=== PATIENT | male | born 1965 | race Caucasian/White ===

== ENCOUNTER 2018-06-03 22:14 | Emergency (ER) | payer OTHER ==
[2018-06-03] MEDS ORDERED: ASPIRIN EC 81 MG TAB PO ONE (23:16)
[2018-06-03 23:37] LABS: Absolute Lymphocytes (CBC) 2.3 K/uL (0.7-4.9); Absolute Monocytes 0.5 K/uL (0.1-1.3); Absolute Neutrophil 2.5 K/uL (1.8-8.0); Basophils % 0.9 % (0-1.3); Hematocrit 40.2 % (39.6-49.0); Lymphocytes % 41.3 % (15.3-44.8); MCH 32.8 pg (27.0-35.0); MCV 94.3 fL (80-100); MPV 9.3 fL (7.6-11.3); Monocytes % 9.7 % (3.3-12.3); RBC Red Blood Cell Count 4.26 M/uL (4.33-5.43)
[2018-06-03 23:42] LABS: Protime INR 1.05
[2018-06-03 23:51] LABS: ALT/SGPT 24 U/L (12-78); AST/SGOT 18 U/L (15-37); Alkaline Phosphatase 48 U/L (45-117); BUN Blood Urea Nitrogen 20 mg/dL (7-18); Bicarbonate 30 mmol/L (21-32); Bilirubin Direct 0.1 mg/dL (0-0.2); Bilirubin Total 0.4 mg/dL (0.2-1.0); CKMB Creatine Kinase MB 2.3 ng/mL (0.3-3.6); Creatine Phosphokinase 63 U/L (39-308); Glucose Level 105 mg/dL (74-106); Magnesium 2.2 mg/dL (1.8-2.4); NT PRO-BNP 34 pg/mL (<125); Potassium 3.7 mmol/L (3.5-5.1); Protein, Total 7.1 g/dL (6.4-8.2); Sodium Level 143 mmol/L (136-145); Troponin (Emerg Dept Use Only) < 0.02 ng/mL (0.0-0.045)
[2018-06-04] LABS: Thyroid Stimulating Hormone 6.23 uIU/mL (0.360-3.740)
--- NOTE | 2018-06-04 01:39 | EDPHYS ---
Physician Documentation [facility] Name: Isaias Palacios Age: 53 yrs Sex: Male : 1965 Arrival Date: 06/03/2018 Time: 22:14 Bed 26 Private MD: Jayant Cooper B ED Physician Luis Antonio Cordero HPI: 06/03 23:08 This 53 yrs old Male presents to ER via Ambulatory with complaints of High pkl Blood Pressure. 23:08 The patient or guardian reports chest pain that is located primarily in the substernal pkl area. Onset: just prior to arrival. The pain radiates to the left arm. Associated signs and symptoms: The patient has no apparent associated signs or symptoms. The chest pain is described as dull. The patient has experienced similar episodes in the past, several times, Over the last 3 weeks. Historical: - Allergies: 23:01 No Known Allergies; bb - Home Meds: 23:01 levothyroxine oral [Active]; nasal spray [Active]; bb - PMHx: 23:01 Hypothyroidism; bb - PSHx: 23:01 varicose veins; Knee surgery; bb - Immunization history:: Adult Immunizations up to date. - Social history:: Smoking status: Patient/guardian denies using tobacco, Patient/guardian denies using alcohol, street drugs. - Ebola Screening: : No symptoms or risks identified at this time. ROS: 23:08 Eyes: Negative for injury, pain, redness, and discharge, ENT: Negative for injury, pkl pain, and discharge, Neck: Negative for injury, pain, and swelling. 23:08 Cardiovascular: Positive for chest pain. 23:08 Respiratory: Negative for cough, shortness of breath. 23:08 Abdomen/GI: Negative for abdominal pain, nausea, vomiting, and diarrhea. 23:08 Back: Negative for acute changes. 23:08 : Negative for urinary symptoms. 23:08 MS/extremity: Negative for acute changes. 23:08 Skin: Negative for rash. 23:08 Neuro: Negative for altered mental status. Exam: 23:08 Head/Face: Normocephalic, atraumatic. Eyes: Pupils equal round and reactive to light, pkl extra-ocular motions intact. Lids and lashes normal. Conjunctiva and sclera are non-icteric and not injected. Cornea within normal limits. Periorbital areas with no swelling, redness, or edema. ENT: Nares patent. No nasal discharge, no septal abnormalities noted. Tympanic membranes are normal and external auditory canals are clear. Oropharynx with no redness, swelling, or masses, exudates, or evidence of obstruction, uvula midline. Mucous membranes moist. Neck: Trachea midline, no thyromegaly or masses palpated, and no cervical lymphadenopathy. Supple, full range of motion without nuchal rigidity, or vertebral point tenderness. No Meningismus. Chest/axilla: Normal chest wall appearance and motion. Nontender with no deformity. No lesions are appreciated. Cardiovascular: Regular rate and rhythm with a normal S1 and S2. No gallops, murmurs, or rubs. Normal PMI, no JVD. No pulse deficits. Respiratory: Lungs have equal breath sounds bilaterally, clear to auscultation and percussion. No rales, rhonchi or wheezes noted. No increased work of breathing, no retractions or nasal flaring. Abdomen/GI: Soft, non-tender, with normal bowel sounds. No distension or tympany. No guarding or rebound. No evidence of tenderness throughout. Back: No spinal tenderness. No costovertebral tenderness. Full range of motion. Skin: Warm, dry with normal turgor. Normal color with no rashes, no lesions, and no evidence of cellulitis. MS/ Extremity: Pulses equal, no cyanosis. Neurovascular intact. Full, normal range of motion. Neuro: Awake and alert, GCS 15, oriented to person, place, time, and situation. Cranial nerves II-XII grossly intact. Motor strength 5/5 in all extremities. Sensory grossly intact. Cerebellar exam normal. Normal gait. Vital Signs: 22:30 BP 126 / 87; Pulse 54; Resp 16 S; Temp 98.2(O); Pulse Ox 97% on R/A; Weight 77.11 kg bb (R); Height 6 ft. 2 in. (187.96 cm) (R); Pain 4/10; 06/04 00:40 BP 120 / 68; Pulse 53; Resp 18; Pulse Ox 97% ; tl3 01:46 BP 121 / 60; Pulse 50; Resp 18; Pulse Ox 100% on R/A; Pain 0/10; mg2 06/03 22:30 Body Mass Index 21.83 (77.11 kg, 187.96 cm) bb MDM: 06/03 23:01 Patient medically screened. rn 23:07 Patient medically screened. rn 23:07 Patient medically screened. rn 06/04 01:34 Data reviewed: vital signs, nurses notes, lab test result(s), EKG, radiologic studies, pkl plain films. ED course: Patient feeling better. Asymptomatic. Patient want to go home now. Does not want repeat Troponin done. Will follow up with Dr. Garza next week. Advised to return if necessary. 01:37 Patient medically screened. pkl 06/03 23:05 Order name: Basic Metabolic Panel; Complete Time: : pkl 06/03 23:05 Order name: CBC with Diff; Complete Time: : pkl 06/03 23:05 Order name: Ckmb; Complete Time: : pkl 06/03 23:05 Order name: CPK; Complete Time: : pkl 06/03 23:05 Order name: LFT's; Complete Time: : pkl 06/03 23:05 Order name: Magnesium; Complete Time: : pkl 06/03 23:05 Order name: NT PRO-BNP; Complete Time: : pkl 06/03 23:05 Order name: PT-INR; Complete Time: pkl 06/03 23:05 Order name: Ptt, Activated; Complete Time: pkl 06/03 23:05 Order name: Troponin (emerg Dept Use Only); Complete Time: : pkl 06/03 23:05 Order name: D-Dimer; Complete Time: : pkl 06/03 23:11 Order name: TSH; Complete Time: : pkl 06/04 00:03 Order name: T4 Free; Complete Time: : EDMS 06/03 23:05 Order name: XRAY Chest (1 view) pkl 06/03 23:05 Order name: EKG; Complete Time: 23: pkl 06/03 23:05 Order name: Cardiac monitoring; Complete Time: : pkl 06/03 23:05 Order name: EKG - Nurse/Tech; Complete Time: 23: pkl 06/03 23:05 Order name: IV Saline Lock; Complete Time: : pkl 06/03 23:05 Order name: Labs collected and sent; Complete Time: 23: pkl 06/03 23:05 Order name: O2 Per Protocol; Complete Time: 23: pkl 06/03 23:05 Order name: O2 Sat Monitoring; Complete Time: 23: pkl 06/04 01:24 Order name: EKG; Complete Time: 01:24 mg2 Administered Medications: 06/03 23:14 Drug: Aspirin 162 mg Route: PO; mg2 06/04 01:35 Follow up: Response: No adverse reaction; Marked relief of symptoms mg2 Disposition: 06/04/18 01:37 Discharged to Home. Impression: Chest pain. - Condition is Stable. - Medication Reconciliation Form, Thank You Letter, Antibiotic Education, Prescription Opioid Use form. - Follow up: Rodriguez Garza MD; When: 5 - 6 days; Reason: Re-evaluation by your physician. - Problem is new. - Symptoms have improved. Signatures: Dispatcher [employer] EDOH Luis Antonio Cordero MD MD pkl Ballard, Brenda, RN RN Reginaldo Martinez MD MD rn Gardose, Michele, RN RN mg2 Corrections: (The following items were deleted from the chart) 01:35 01:24 TROPONIN (EMERG DEPT USE ONLY)+C.LAB.BRZ ordered. [facility] EDOH 01:47 01:37 06/04/2018 01:37 Discharged to Home. Impression: Chest pain. Condition is Stable. mg2 Forms are Medication Reconciliation Form, Thank You Letter, Antibiotic Education, Prescription Opioid Use. Follow up: Rodriguez Garza; When: 5 - 6 days; Reason: Re-evaluation by your physician. Problem is new. Symptoms have improved. pkl
--- NOTE | 2018-06-04 01:39 | ER ---
Nurse's Notes [facility] Name: Isaias Palacios Age: 53 yrs Sex: Male : 1965 Arrival Date: 06/03/2018 Time: 22:14 Bed 26 Private MD: Jayant Cooper B Diagnosis: Chest pain Presentation: 06/03 22:35 Presenting complaint: Patient states: he started feeling his heart race, felt dizzy bb with chest pain radiating down left arm, took his blood pressure several times and it was elevated for him 130s/80s. Pt states his pocxgb-ie-lov just a few hours ago. Pt does have an appointment with Dr Garza next week. Has been having similar symptoms intermittently over the last 3 weeks. Transition of care: patient was not received from another setting of care. Onset of symptoms was June 03, 2018. Risk Assessment: Do you want to hurt yourself or someone else? Patient reports no desire to harm self or others. Initial Sepsis Screen: Does the patient meet any 2 criteria? No. Patient's initial sepsis screen is negative. Does the patient have a suspected source of infection? No. Patient's initial sepsis screen is negative. Care prior to arrival: None. 22:35 Method Of Arrival: Ambulatory bb 22:35 Acuity: RAYMOND 3 bb Historical: - Allergies: 23:01 No Known Allergies; bb - Home Meds: 23:01 levothyroxine oral [Active]; nasal spray [Active]; bb - PMHx: 23:01 Hypothyroidism; bb - PSHx: 23:01 varicose veins; Knee surgery; bb - Immunization history:: Adult Immunizations up to date. - Social history:: Smoking status: Patient/guardian denies using tobacco, Patient/guardian denies using alcohol, street drugs. - Ebola Screening: : No symptoms or risks identified at this time. Screenin:16 Abuse screen: Denies threats or abuse. Denies injuries from another. Nutritional mg2 screening: No deficits noted. Tuberculosis screening: No symptoms or risk factors identified. Fall Risk IV access (20 points). Assessment: 23:16 General: Appears in no apparent distress. comfortable, Behavior is calm, cooperative. mg2 Pain: Denies pain. Neuro: Level of Consciousness is awake, alert, obeys commands, Oriented to person, place, time, situation. Cardiovascular: Capillary refill < 3 seconds Patient's skin is warm and dry. Respiratory: Airway is patent Respiratory effort is even, unlabored, Respiratory pattern is regular, symmetrical. GI: No signs and/or symptoms were reported involving the gastrointestinal system. : No signs and/or symptoms were reported regarding the genitourinary system. EENT: No signs and/or symptoms were reported regarding the EENT system. Derm: Skin is intact, Skin is pink, warm \T\ dry. normal. Musculoskeletal: No signs and/or symptoms reported regarding the musculoskeletal system. 06/04 00:40 Reassessment: No changes from previously documented assessment. Patient and/or family tl3 updated on plan of care and expected duration. Pain level reassessed. Patient is alert, oriented x 3, equal unlabored respirations, skin warm/dry/pink. 01:47 Reassessment: Patient appears in no apparent distress at this time. Patient and/or mg2 family updated on plan of care and expected duration. Pain level reassessed. Patient is alert, oriented x 3, equal unlabored respirations, skin warm/dry/pink. Vital Signs: 06/03 22:30 BP 126 / 87; Pulse 54; Resp 16 S; Temp 98.2(O); Pulse Ox 97% on R/A; Weight 77.11 kg bb (R); Height 6 ft. 2 in. (187.96 cm) (R); Pain 4/10; 06/04 00:40 BP 120 / 68; Pulse 53; Resp 18; Pulse Ox 97% ; tl3 01:46 BP 121 / 60; Pulse 50; Resp 18; Pulse Ox 100% on R/A; Pain 0/10; mg2 06/03 22:30 Body Mass Index 21.83 (77.11 kg, 187.96 cm) bb ED Course: 06/03 22:14 Patient arrived in ED. ds1 22:15 Jayant Cooper MD is Private Physician. ds1 22:30 Arm band placed on Patient placed in an exam room, on a stretcher, on color television console monitor, bb on pulse oximetry. EKG completed in triage. Results shown to MD. 22:56 Triage completed. bb 23:00 Reginaldo Hastings MD is Attending Physician. rn 23:08 Attending Physician role handed off by Reginaldo Hastings MD pkl 23:08 Luis Antonio Cordero MD is Attending Physician. pkl 23:09 Rey Silva, RN is Primary Nurse. mg2 23:17 No provider procedures requiring assistance completed. Inserted saline lock: 20 gauge mg2 in left antecubital area, using aseptic technique. Blood collected. 23:18 Patient has correct armband on for positive identification. environmental monitoring technician on. Pulse mg2 ox on. NIBP on. 23:52 XRAY Chest (1 view) In Process Unspecified. EDMS 06/04 00:20 X-ray completed. Portable x-ray completed in exam room. Patient tolerated procedure kw well. 01:37 Rodriguez Garza MD is Referral Physician. pkl 01:46 IV discontinued, intact, bleeding controlled, No redness/swelling at site. Pressure mg2 dressing applied. Administered Medications: 06/03 23:14 Drug: Aspirin 162 mg Route: PO; mg2 06/04 01:35 Follow up: Response: No adverse reaction; Marked relief of symptoms mg2 Outcome: 01:37 Discharge ordered by MD. pkl 01:46 Discharged to home ambulatory. mg2 01:46 Condition: stable 01:46 Discharge instructions given to patient, Instructed on discharge instructions, follow up and referral plans. Demonstrated understanding of instructions, follow-up care. 01:47 Patient left the ED. mg2 Signatures: Dispatcher [employer] EDCA Luis Antonio Cordero MD MD pkl Belinda Oliver ds1 Tahmina Parra, RN RN bb Reginaldo Hastings MD MD rn Whitley, Kimberlee kw Lowrey, Tammy, RN RN tl3 Rey Silva, ROHIT RN mg2
--- NOTE | 2018-06-04 08:18 | RAD REPORT ---
EXAM DESCRIPTION: RAD - Chest Single View - 06/03/2018 11:52 pm CLINICAL HISTORY: CHEST PAIN Chest pain. COMPARISON: Chest Pa And Lat (2 Views) dated 04/20/2016; CHEST PA AND LAT 2 VIEW dated 03/22/2008 FINDINGS: Portable technique limits examination quality. The lungs are grossly clear. The heart is normal in size. No displaced fractures. IMPRESSION: No acute intrathoracic process suspected.
--- NOTE | 2018-06-04 12:10 | EKG ---
Test Date: 2018-06-04 Test Time: 01:28:08 Functional Skills Tutor: MG MEASUREMENT RESULTS: Intervals: Rate: 46 KS: 148 QRSD: 100 QT: 476 QTc: 416 [place]: P: 57 KS: 148 QRS: 65 T: 47 INTERPRETIVE STATEMENTS: Marked sinus bradycardia Abnormal ECG Compared to ECG 06/30/2013 11:17:19 No significant changes Electronically Signed On 06-04-18 12:08:35 CDT by Rodriguez Garza
--- NOTE | 2018-06-04 12:10 | EKG ---
Test Date: 2018-06-03 Test Time: 22:40:39 Object Oriented Developer: YOKASTA MEASUREMENT RESULTS: Intervals: Rate: 55 [place]: 146 QRSD: 100 QT: 454 QTc: 434 [place]: P: 45 [place]: 146 QRS: 46 T: 30 INTERPRETIVE STATEMENTS: Sinus bradycardia Otherwise normal ECG Compared to ECG 06/30/2013 11:17:19 No significant changes Electronically Signed On 06-04-18 12:08:43 CDT by Rodriguez Garza
== END 2018-06-04 01:47 | disposition home or self-care (01) ==
LOC: ER 22:14
DX: R07.9 Chest pain, unspecified (principal); E03.9 Hypothyroidism, unspecified
CPT/HCPCS: 36415; 71045; 80048; 80076; 82550; 82553; 83735; 83880; 84439; 84443; 84484; 85025; 85379; 85610; 85730; 93005; 99284

== ENCOUNTER 2020-04-06 23:21 | Emergency (ER) | payer OTHER ==
--- OUTSIDE RECORDS SUMMARY | 2020-04-06 23:22 | XMS REPORT | Continuity of Care Document ---
:1965 Author Organization [facility] t Address [address] [place] [address] Care Team Providers Name Role Phone Unavailable Unavailable Unavailable Problems This patient has no known problems. Allergies, Adverse Reactions, Alerts This patient has no known allergies or adverse reactions. Medications This patient has no known medications. Procedures This patient has no known procedures. Results This patient has no known results.
--- NOTE | 2020-04-06 23:38 | EDPHYS ---
Physician Documentation [facility] Name: Isaias Palacios Age: 55 yrs Sex: Male : 1965 Arrival Date: 04/06/2020 Time: 23:25 Bed External Waiting Private MD: Jayant Cooper B ED Physician Jose Su HPI: 04/06 23:33 This 55 yrs old Male presents to ER via Unassigned with complaints of Blood kb pressure check. 23:33 "I just want to get my blood pressure checked.". The patient has not experienced kb similar symptoms in the past. The patient has been recently seen by a physician:. Pt states he came in to get his blood pressure checked. STates "I would have gotten it done at one of the pharmacies, but they won't let you use them right now with covid going on." States he has been having some neck and left arm pain for months and has had multiple cardiac tests done to rule out a heart problem. Has more imaging scheduled for next Saturday. . Historical: - Allergies: 23:41 No Known Allergies; sg - PMHx: 23:41 Hypothyroidism; sg - PSHx: 23:41 varicose veins; Knee surgery; sg - Immunization history:: Adult Immunizations up to date. - Social history:: Smoking status: Patient denies any tobacco usage or history of. ROS: 23:33 Constitutional: Negative for fever, chills, and weight loss, Neck: Negative for injury, kb pain, and swelling, Cardiovascular: Negative for chest pain, palpitations, and edema, Respiratory: Negative for shortness of breath, cough, wheezing, and pleuritic chest pain, Abdomen/GI: Negative for abdominal pain, nausea, vomiting, diarrhea, and constipation, Back: Negative for injury and pain, MS/Extremity: Negative for injury and deformity, Skin: Negative for injury, rash, and discoloration, Neuro: Negative for headache, weakness, numbness, tingling, and seizure. Exam: 23:33 Constitutional: This is a well developed, well nourished patient who is awake, alert, kb and in no acute distress. Head/Face: Normocephalic, atraumatic. Neck: Trachea midline, no thyromegaly or masses palpated, and no cervical lymphadenopathy. Supple, full range of motion without nuchal rigidity, or vertebral point tenderness. No Meningismus. Chest/axilla: Normal chest wall appearance and motion. Nontender with no deformity. No lesions are appreciated. Cardiovascular: Regular rate and rhythm with a normal S1 and S2. No gallops, murmurs, or rubs. Normal PMI, no JVD. No pulse deficits. Respiratory: Lungs have equal breath sounds bilaterally, clear to auscultation and percussion. No rales, rhonchi or wheezes noted. No increased work of breathing, no retractions or nasal flaring. Abdomen/GI: Soft, non-tender, with normal bowel sounds. No distension or tympany. No guarding or rebound. No evidence of tenderness throughout. Skin: Warm, dry with normal turgor. Normal color with no rashes, no lesions, and no evidence of cellulitis. MS/ Extremity: Pulses equal, no cyanosis. Neurovascular intact. Full, normal range of motion. Neuro: Awake and alert, GCS 15, oriented to person, place, time, and situation. Cranial nerves II-XII grossly intact. Motor strength 5/5 in all extremities. Sensory grossly intact. Cerebellar exam normal. Normal gait. Vital Signs: 23:38 BP 126 / 80; Pulse 60; Resp 18; Temp 98.4; Pulse Ox 100% ; Pain 0/10; kb MDM: 23:32 Patient medically screened. 23:36 Data reviewed: vital signs, nurses notes. Data interpreted: Pulse oximetry: on room air kb is 100 %. Interpretation: normal. Counseling: I had a detailed discussion with the patient and/or guardian regarding: the historical points, exam findings, and any diagnostic results supporting the discharge/admit diagnosis, the need for outpatient follow up, a family practitioner, to return to the emergency department if symptoms worsen or persist or if there are any questions or concerns that arise at home. 23:38 ED course: I was talking to pt as I was obtaining vital signs. When blood pressure was kb measured pt stood up to leave stating "Thanks, that's all I needed." Pt did not want to have anything else done. Reported he didn't need any other testing. . Administered Medications: No medications were administered Disposition: 23:36 Encounter for blood pressure check. freedom 04/07 08:48 Co-signature as Attending Physician, Jose Su MD I agree with the assessment and ambrose plan of care. Disposition: 04/06/20 23:37 Discharged to Home. Impression: Encounter for screening, unspecified. - Condition is Stable. - Medication Reconciliation Form, Thank You Letter, Antibiotic Education, Prescription Opioid Use form. - Follow up: Emergency Department; When: As needed; Reason: Worsening of condition. Follow up: Jayant Cooper MD; When: 2 - 3 days; Reason: Recheck today's complaints, Continuance of care, Re-evaluation by your physician. Signatures: Jenn Ann, FEATURES EDITOR-C FEATURES EDITOR-Ckb Jose Armando Weaver RN RN Jose Hurt MD MD [facility] Corrections: (The following items were deleted from the chart) 04/06 23:48 23:37 04/06/2020 23:37 Discharged to Home. Impression: Encounter for screening, sg unspecified. Condition is Stable. Forms are Medication Reconciliation Form, Thank You Letter, Antibiotic Education, Prescription Opioid Use. Follow up: Emergency Department; When: As needed; Reason: Worsening of condition. Follow up: Jayant Cooper; When: 2 - 3 days; Reason: Recheck today's complaints, Continuance of care, Re-evaluation by your physician. kb
--- NOTE | 2020-04-06 23:49 | ER ---
Nurse's Notes [facility] Name: Isaias Palacios Age: 55 yrs Sex: Male : 1965 Arrival Date: 04/06/2020 Time: 23:25 Bed External Waiting Private MD: Jayant Cooper B Diagnosis: Encounter for screening, unspecified Presentation: 04/06 23:33 Chief complaint: Patient states: With the COVID 19 stuff going on I havent been able to sg get into the pharmacy to use their machine to have my BP taken, So Im just here to make sure that my blood pressure is OK. Coronavirus screen: Proceed with normal triage. Ebola Screen: Patient negative for fever greater than or equal to 101.5 degrees Fahrenheit, and additional compatible Ebola Virus Disease symptoms Patient denies exposure to infectious person. Patient denies travel to an Ebola-affected area in the 21 days before illness onset. No symptoms or risks identified at this time. Initial Sepsis Screen: Does the patient meet any 2 criteria? No. Patient's initial sepsis screen is negative. Does the patient have a suspected source of infection? No. Patient's initial sepsis screen is negative. Risk Assessment: Do you want to hurt yourself or someone else? Patient reports no desire to harm self or others. Onset of symptoms was April 06, 2020. Care prior to arrival: None. Transition of care: patient was not received from another setting of care. 23:33 Method Of Arrival: Ambulatory sg 23:33 Acuity: RAYMOND 5 sg Triage Assessment: 23:42 General: Appears in no apparent distress. well groomed, well developed, well nourished, sg Behavior is calm, cooperative, appropriate for age. Pain: Denies pain. Neuro: No deficits noted. Denies weakness blurred vision dizziness, difficulty swallowing, paresthesias numbness headache photophobia diplopia. Cardiovascular: Capillary refill is brisk in bilateral fingers Patient's skin is warm and dry. Chest pain is denied. Respiratory: Airway is patent Respiratory effort is even, unlabored, Respiratory pattern is regular, symmetrical. GI: No signs and/or symptoms were reported involving the gastrointestinal system. : No signs and/or symptoms were reported regarding the genitourinary system. Derm: Skin is pink, warm \\T\\ dry. Musculoskeletal: Circulation, motion, and sensation intact. Range of motion: intact in all extremities. Historical: - Allergies: 23:41 No Known Allergies; sg - PMHx: 23:41 Hypothyroidism; sg - PSHx: 23:41 varicose veins; Knee surgery; sg - Immunization history:: Adult Immunizations up to date. - Social history:: Smoking status: Patient denies any tobacco usage or history of. Assessment: 04/07 00:12 Reassessment: pt removed BP cuff and stated " well, that's all I needed to know, Im sg gonna go now." Raven [employer] BR[employer] MAKER at bedside with pt and request that more studies may be necessary. pt refused and is discharged to home. Vital Signs: 04/06 23:38 BP 126 / 80; Pulse 60; Resp 18; Temp 98.4; Pulse Ox 100% ; Pain 0/10; kb ED Course: 23:25 Patient arrived in ED. es 23:25 Jayant Cooper MD is Private Physician. es 23:30 Arm band placed on. sg 23:31 Jenn Ann F[facility]-C is [facility]. kb 23:31 Jose Su MD is Attending Physician. kb 23:33 Patient has correct armband on for positive identification. Bed in low position. Call sg light in reach. Side rails up X2. Pulse ox on. NIBP on. Warm blanket given. Head of bed elevated. 23:37 Jayant Cooper MD is Referral Physician. kb 23:40 Triage completed. sg 23:42 No provider procedures requiring assistance completed. Patient did not have IV access sg during this emergency room visit. Administered Medications: No medications were administered Outcome: 23:37 Discharge ordered by . kb 23:45 Discharged to home ambulatory. sg 23:45 Condition: good 23:45 Discharge instructions given to patient, Instructed on discharge instructions, follow up and referral plans. medication usage, safety practices, Demonstrated understanding of instructions, follow-up care. 23:48 Patient left the ED. sg Signatures: Jenn Ann FNP-C FNP-Jose Armando Karimi, RN RN Gloria Alexis
[2020-04-07 01:05] VITALS: BP 126/80; TEMP 98.4; O2SAT 100
== END 2020-04-06 23:48 | disposition home or self-care (01) ==
LOC: ER 23:21
DX: Z01.30 Encounter for examination of blood pressure without abnormal findings (principal)
CPT/HCPCS: 99283

== ENCOUNTER 2022-04-06 17:13 | Emergency (ER) | payer OTHER ==
--- NOTE | 2022-04-06 18:57 | RAD REPORT ---
[facility] 6:48 pm CLINICAL HISTORY: left leg pain COMPARISON: None FINDINGS: Left common femoral, superficial femoral, popliteal and posterior tibial veins are compre ssible and demonstrate augmentation. Doppler demonstrates good flow. Grayscale, color and spectral analysis performed on all vessels IMPRESSION: No evidence of deep venous thrombosis involving the left lower extremity.
--- NOTE | 2022-04-06 18:59 | RAD REPORT ---
EXAM DESCRIPTION: US - Lower Extremity Artery Uni Ltd - 04/06/2022 6:49 pm CLINICAL HISTORY: Leg pain COMPARISON: None FINDINGS: The left common femoral, superficial femoral, popliteal and left posterior tibial arteries demonstrat e triphasic waveforms The left dorsalis pedis arteries demonstrate biphasic waveforms No occlusion/high-grade stenosis Grayscale, color and spectral analysis performed on all vessels IMPRESSION: Minimal distal lower extremity arterial disease
--- NOTE | 2022-04-06 19:21 | EDPHYS ---
Physician Documentation [facility] Name: Isaias Palacios Age: 57 yrs Sex: Male : 1965 Arrival Date: 04/06/2022 Time: 17:22 Bed 10 Private MD: ED Physician Jose Su HPI: 04/07 00:03 This 57 yrs old Male presents to ER via Ambulatory with complaints of Leg Pain. kb 00:03 The patient presents with swelling. The complaints affect the left calf. Context: The kb problem was sustained at home, the patient can fully bear weight, the patient is able to ambulate, Problem is a result from a previous injury: Yes. Onset: The symptoms/episode began/occurred today. Modifying factors: The symptoms are alleviated by nothing. the symptoms are aggravated by nothing. Associated signs and symptoms: Pertinent positives: swelling, Pertinent negatives calf tenderness, fever, nausea, numbness, rash, tingling, vomiting, warmth, weakness. Treatment prior to arrival includes: no previous treatment. Severity of symptoms: At their worst the symptoms were mild, moderate, in the emergency department the symptoms are unchanged. The patient has not experienced similar symptoms in the past. The patient has not recently seen a physician. Pt reports left calf swelling that has been going on since a running injury. States he goes to PT because of the injury. Went today and they were concerned about the swelling to left calf so they sent him to get US to rule out clot. Historical: - Allergies: 04/06 18:04 No Known Allergies; iw - Home Meds: 18:04 levothyroxine oral once daily [Active]; iw - PMHx: 18:04 Hypothyroidism; iw - PSHx: 18:04 meniscus; Vasectomy; varicose veins; iw ROS: 04/07 00:02 Constitutional: Negative for fever, chills, and weight loss. kb MS/extremity: Positive for swelling, of the left calf. All other systems are negative. Exam: 00:02 Constitutional: This is a well developed, well nourished patient who is awake, alert, kb and in no acute distress. Head/Face: Normocephalic, atraumatic. ENT: Moist Mucous membranes Cardiovascular: Regular rate and rhythm with a normal S1 and S2. No gallops, murmurs, or rubs. No pulse deficits. Respiratory: Respirations even and unlabored. No increased work of breathing. Talking in full sentences Skin: Warm, dry with normal turgor. Normal color. MS/ Extremity: Pulses equal, no cyanosis. Neurovascular intact. Full, normal range of motion. Neuro: Awake and alert, GCS 15, oriented to person, place, time, and situation. Moves all extremities. Normal gait. Psych: Awake, alert, with orientation to person, place and time. Behavior, mood, and affect are within normal limits. Vital Signs: 04/06 18:03 BP 121 / 77; Pulse 53; Resp 16; Temp 98.2; Pulse Ox 100% on R/A; iw MDM: 19:14 Patient medically screened. [facility] 04/07 00:02 Data reviewed: vital signs, nurses notes. Data interpreted: Pulse oximetry: on room air kb is 100 %. Interpretation: normal. Counseling: I had a detailed discussion with the patient and/or guardian regarding: the historical points, exam findings, and any diagnostic results supporting the discharge/admit diagnosis, radiology results, the need for outpatient follow up, a family practitioner, to return to the emergency department if symptoms worsen or persist or if there are any questions or concerns that arise at home. 04/06 18:09 Order name: US Extremity Venous Unilateral Ltd; Complete Time: 19:04 04/06 18:35 Order name: Lower Extremity Artery Uni Ltd; Complete Time: 19:04 EDLA Administered Medications: No medications were administered Disposition Summary: 04/06/22 19:21 Discharge Ordered Location: Home kb Condition: Stable kb Diagnosis - Swelling to left calf s/p old injury kb Followup: kb - With: Emergency Department - When: As needed - Reason: Worsening of condition Followup: kb - With: Private Physician - When: 2 - 3 days - Reason: Recheck today's complaints, Continuance of care, Re-evaluation by your physician Discharge Instructions: - Discharge Summary Sheet kb - Edema, [id number] kb Forms: - Medication Reconciliation Form kb - Thank You Letter kb - Antibiotic Education kb - Prescription Opioid Use kb Addendum: 04/08/2022 13:53 Co-signature as Attending Physician, Jose Su MD I agree with the assessment and c martínez plan of care. Signatures: Dispatcher [employer] EDJenn Álvarez FNP-C FNP-Ckb Jose Su MD MD cha Williams, Irene, RN RN iw
--- NOTE | 2022-04-06 19:21 | ER ---
Nurse's Notes [facility] Name: Isaias Palacios Age: 57 yrs Sex: Male : 1965 Arrival Date: 04/06/2022 Time: 17:22 Bed 10 Private MD: Diagnosis: Swelling to left calf s/p old injury Presentation: 04/06 18:03 Chief complaint: Patient states: my doctor said I need to come in because i have iw throbbing in my left calf, has been hurting for a month. Coronavirus screen: At this time, the client does not indicate any symptoms associated with coronavirus-19. Ebola Screen: Patient negative for fever greater than or equal to 101.5 degrees Fahrenheit, and additional compatible Ebola Virus Disease symptoms Patient denies exposure to infectious person. Patient denies travel to an Ebola-affected area in the 21 days before illness onset. No symptoms or risks identified at this time. Initial Sepsis Screen: Does the patient meet any 2 criteria? No. Patient's initial sepsis screen is negative. Does the patient have a suspected source of infection? No. Patient's initial sepsis screen is negative. Risk Assessment: Do you want to hurt yourself or someone else? Patient reports no desire to harm self or others. Onset of symptoms was February 2022. 18:03 Method Of Arrival: Ambulatory iw 18:03 Acuity: RAYMOND 3 iw Triage Assessment: 19:50 General: Appears in no apparent distress. comfortable, Behavior is calm, cooperative. lg3 Historical: - Allergies: 18:04 No Known Allergies; iw - Home Meds: 18:04 levothyroxine oral once daily [Active]; iw - PMHx: 18:04 Hypothyroidism; iw - PSHx: 18:04 meniscus; Vasectomy; varicose veins; iw Screenin:50 Abuse screen: Denies threats or abuse. Denies injuries from another. Nutritional lg3 screening: No deficits noted. Tuberculosis screening: No symptoms or risk factors identified. Fall Risk None identified. Assessment: 19:51 General: Appears in no apparent distress. comfortable, Behavior is calm, cooperative. lg3 Pain: Complains of pain in leg. Neuro: No deficits noted. Level of Consciousness is awake, alert, obeys commands, Oriented to person, place, time, situation. Cardiovascular: No deficits noted. Denies chest pain, shortness of breath, Capillary refill < 3 seconds Clubbing of nail beds is absent JVD is absent Patient's skin is warm and dry. Respiratory: No deficits noted. Airway is patent Trachea midline Respiratory effort is even, unlabored, Respiratory pattern is regular, symmetrical. GI: No deficits noted. No signs and/or symptoms were reported involving the gastrointestinal system. : No deficits noted. No signs and/or symptoms were reported regarding the genitourinary system. EENT: No deficits noted. No signs and/or symptoms were reported regarding the EENT system. Derm: No deficits noted. No signs and/or symptoms reported regarding the dermatologic system. Skin is intact, is healthy with good turgor, Skin is dry, Skin temperature is warm. Musculoskeletal: No deficits noted. Circulation, motion, and sensation intact. Range of motion: intact in all extremities. 19:52 General: provider notified pt of discharge instructions. pt left before signing lg3 discharge paperwork. . Vital Signs: 18:03 BP 121 / 77; Pulse 53; Resp 16; Temp 98.2; Pulse Ox 100% on R/A; iw ED Course: 17:22 Patient arrived in ED. ja2 18:04 Triage completed. iw 18:05 Arm band placed on. iw 18:10 Jenn [facility]-C [facility] kb 18:10 Jose Su MD is Attending Physician. kb 18:50 US Extremity Venous Unilateral Ltd In Process Unspecified. EDMS 18:51 Lower Extremity Artery Uni Ltd In Process Unspecified. EDMS 19:51 No provider procedures requiring assistance completed. Patient did not have IV access lg3 during this emergency room visit. Administered Medications: No medications were administered Medication: 19:51 VIS not applicable for this client. lg3 Outcome: 19:21 Discharge ordered by . kb 19:51 Discharged to home ambulatory. lg3 19:51 Condition: stable 19:51 Discharge instructions given to patient, Instructed on discharge instructions, Demonstrated understanding of instructions. 19:53 Patient left the ED. lg3 Signatures: Dispatcher [employer] EDMS Jenn Ann FNP-C FNP-Ckb Williams, Irene, RN RN iw Cristy Oates RN RN lg3 Nory Carlson
[2022-04-06 20:08] VITALS: BP 121/77; TEMP 98.2; O2SAT 100
== END 2022-04-06 19:53 | disposition home or self-care (01) ==
LOC: ER 17:13
DX: R22.42 Localized swelling, mass and lump, left lower limb (principal); Z87.828 Personal history of other (healed) physical injury and trauma; E03.9 Hypothyroidism, unspecified
CPT/HCPCS: 93926; 93971; 99283